=== PATIENT | male | born 1985 | race Two or more races ===

== ENCOUNTER 2021-06-17 10:31 | Inpatient (IN) | payer MEDICAID, OTHER ==
[~2021-06-17] VITALS: Ht 170.2 cm; Wt 64.7 kg
[2021-06-17] MEDS ORDERED: SODIUM CHLORIDE 0.9% 1,000 ML IV ONE (11:00)
[2021-06-17] MEDS ORDERED: SODIUM CHLORIDE 0.9% 1,000 ML IVB ONE (11:00)
[2021-06-17 12:25] LABS: Basophils # (auto) 0 10 ^3/uL (0-0.2); Basophils % (auto) 0.3 % (0.0-2.0); Eosinophils # (auto) 0 10 ^3/uL (0-0.8); Hematocrit 39.9 % (41.0-53.0); Hemoglobin 13.7 g/dL (13.5-17.5); Lymphocytes # (auto) 0.6 10 ^3/uL (0.4-5.4); Lymphocytes % (auto) 3.5 % (10.0-50.0); Mean Corpuscular Hgb Conc. 34.4 g/dL (32.0-36.0); Mean Corpuscular Volume 81.5 fL (80.0-100.0); Monocytes # (auto) 0.9 10 ^3/uL (0-1.3); Monocytes % (auto) 5.3 % (0.0-12.0); Neutrophils # (auto) 15.1 10 ^3/uL (1.6-8.6); Neutrophils % (auto) 90.9 % (37.0-80.0); Red Blood Cells 4.89 10^6/uL (4.5-5.90); Red Cell Distribution Width 15.1 % (11.8-14.3); White Blood Cell 16.6 10^3/uL (4.4-10.8)
[2021-06-17 12:27] LABS: Chloride 104 mmol/L (98-107); Potassium 4.6 mmol/L (3.5-5.1); Sodium 138 mmol/L (136-145)
[2021-06-17] MEDS ORDERED: LORazepam 2MG/ML-1ML VIAL IV ONE ×2 (12:30→15:30)
[2021-06-17] MEDS ORDERED: LABETALOL HCL 5 MG/ML 4ML SYRINGE IV ONE (12:30)
[2021-06-17 12:33] LABS: Albumin 4.1 g/dL (3.4-5.0); Anion Gap 10 (5-15); Aspartate Aminotransferase 55 U/L (15-37); BUN/Creatinine Ratio 21.6; Blood Alcohol < 3.0 mg/dL (0-5); Blood Urea Nitrogen 22 mg/dL (7-18); Calcium 9.4 mg/dL (8.5-10.1); Carbon Dioxide 24 mmol/L (21-32); GFR African American 108 mL/min; GFR Non-African American 89 mL/min; Glucose 103 mg/dL (74-106)
[2021-06-17 12:45] LABS: Alanine Aminotransferase 66 U/L (16-61); Alkaline Phosphatase 126 U/L (45-117); Bilirubin, Total 0.6 mg/dL (0.2-1.0); Total Protein 8.1 g/dL (6.4-8.2)
[2021-06-17 14:40] LABS: Alcohol, Urine < 3.0 mg/dL (0-10); Amphetamine Screen, Urine POSITIVE (NEGATIVE); Barbiturate Scree,Urine NEGATIVE (NEGATIVE); Cannabinoid Screen, Urine NEGATIVE (NEGATIVE); Cocaine Screen, Urine NEGATIVE (NEGATIVE); Opiate Scree,Urine NEGATIVE (NEGATIVE); Phencyclidine Screen, Urine NEGATIVE (NEGATIVE)
[2021-06-17 14:43] LABS: Urine Bacteria NONE SEEN /hpf (None Seen); Urine Blood 1+ /uL (Negative); Urine Specific Gravity 1.014 (1.001-1.035); Urine WBC 1 /hpf (0 - 3)
[2021-06-17 14:50] LABS: Benzodiazephine Screen, Urine NEGATIVE (NEGATIVE)
[2021-06-17] MEDS ORDERED: MORPHINE SULFATE INJECTION 2 MG/ML SYRG IV PRN ×2 (15:15→16:45)
[2021-06-17] MEDS ORDERED: NITROGLYCERIN 0.4 MG SL TAB SL PRN (15:15)
[2021-06-17] MEDS ORDERED: METOPROLOL SUCCINATE XL 50 MG TAB PO ONE (15:30)
[2021-06-17] MEDS ORDERED: METOPROLOL TARTRATE 1MG/1ML-5ML VIAL IV PRN (15:30)
[2021-06-17] MEDS ORDERED: LACTATED RINGER'S 1,000 ML IV ONE (15:30)
[2021-06-17] MEDS ORDERED: LABETALOL HCL 5 MG/ML 4ML SYRINGE IV PRN (16:30)
[2021-06-17] MEDS ORDERED: hydrALAZINE HCL 20 MG/ML VL IV PRN (16:45)
[2021-06-17] MEDS ORDERED: THIAMINE 100mg/ml INJ (200mg/2ml VIAL) IV ONE (16:45)
[2021-06-17] MEDS ORDERED: ISOSORBIDE MONONITRATE ER 60 MG TAB PO ONE (16:45)
[2021-06-17] MEDS ORDERED: CLINDAMYCIN 600MG IV 50 ML IV ONE (16:45)
[2021-06-17] MEDS ORDERED: MULTIPLE VITAMINS W/ MINERALS TAB PO ONE (16:45)
[2021-06-17] MEDS ORDERED: PANTOPRAZOLE 40 MG/10 ML VIAL INJ IV ONE (16:45)
[2021-06-17] MEDS ORDERED: ONDANSETRON HCL 4 MG/2 ML VIAL IV PRN (16:45)
[2021-06-17] MEDS ORDERED: BENAZEPRIL HCL 10 MG TAB PO ONE (16:45)
[2021-06-17] MEDS ORDERED: cefTRIAXone 1GM/50ML D5W 50 ML IV ONE (16:45)
[2021-06-17] MEDS ORDERED: HYDROcodone-ACET 5/325MG TAB PO ONE (16:45)
[2021-06-17] MEDS ORDERED: FOLIC ACID 1 MG TAB PO ONE (16:45)
[2021-06-17] MEDS ORDERED: HYDROcodone-ACET 5/325MG TAB PO PRN (16:45)
[2021-06-17] MEDS ORDERED: IPRATROPIUM BROM 0.5 MG/2.5ML INH SOL NEB ONE (16:45)
[2021-06-17] MEDS ORDERED: LACTULOSE 20Gm/30ML SOLN PO PRN (16:45)
[2021-06-17] MEDS ORDERED: LORazepam 0.5 MG TAB PO PRN (16:45)
[2021-06-17] MEDS: SODIUM CHLORIDE 0.9% 1,000 ML IV SCH ×2 (17:28→18:34)
[2021-06-17 17:45] VITALS: BP 114/63
[2021-06-17] MEDS ORDERED: IPRATROPIUM BROM 0.5 MG/2.5ML INH SOL NEB SCH (18:00)
[2021-06-17] MEDS: CLINDAMYCIN 600MG IV 50 ML IV SCH (18:33)
[2021-06-17 20:33] LABS: Magnesium 2.1 mg/dL (1.6-2.6); Phosphorus 3.6 mg/dL (2.5-4.90)
[2021-06-17 20:45] LABS: INR 1.06 (0.9-1.15); Partial Thromboplastin Time 25.6 sec (23.6-33.0)
[2021-06-17] MEDS ORDERED: ATORVASTATIN 20 MG TAB PO SCH (22:00)
[2021-06-18] MEDS ORDERED: dilTIAZem 25 MG/5 ML VIAL IV ONE (00:45)
[2021-06-18] MEDS: CLINDAMYCIN 600MG IV 50 ML IV SCH ×2 (01:18→10:05)
[2021-06-18 04:57] VITALS: BP 149/103
[2021-06-18] MEDS ORDERED: LORazepam 2MG/ML-1ML VIAL IV PRN (05:30)
[2021-06-18] MEDS ORDERED: hydrOXYzine HCL 10 MG TAB PO PRN (05:45)
[2021-06-18] MEDS: chlordiazePOXIDE HCL 25 MG CAP PO SCH ×3 (05:58→20:24)
[2021-06-18] MEDS ORDERED: GABAPENTIN 300 MG CAP PO SCH (06:00)
[2021-06-18 06:52] LABS: Basophils # (auto) 0 10 ^3/uL (0-0.2); Basophils % (auto) 0.3 % (0.0-2.0); Eosinophils # (auto) 0 10 ^3/uL (0-0.8); Eosinophils % (auto) 0.2 % (0.0-7.0); Hematocrit 36.7 % (41.0-53.0); Hemoglobin 12.6 g/dL (13.5-17.5); Lymphocytes # (auto) 1.2 10 ^3/uL (0.4-5.4); Lymphocytes % (auto) 11.1 % (10.0-50.0); Mean Corpuscular Hemoglobin 28.2 pg (28.0-32.0); Mean Corpuscular Hgb Conc. 34.4 g/dL (32.0-36.0); Mean Corpuscular Volume 82.1 fL (80.0-100.0); Monocytes # (auto) 1.2 10 ^3/uL (0-1.3); Monocytes % (auto) 10.5 % (0.0-12.0); Neutrophils # (auto) 8.6 10 ^3/uL (1.6-8.6); Neutrophils % (auto) 77.9 % (37.0-80.0); Red Blood Cells 4.47 10^6/uL (4.5-5.90); Red Cell Distribution Width 15.2 % (11.8-14.3); White Blood Cell 11.1 10^3/uL (4.4-10.8)
[2021-06-18 07:02] LABS: INR 1.05 (0.9-1.15); Partial Thromboplastin Time 26.4 sec (23.6-33.0)
[2021-06-18 07:27] LABS: Thyroid Stimulating Hormone 1.67 uIU/mL (0.358-3.74)
[2021-06-18 07:32] LABS: Albumin 3.4 g/dL (3.4-5.0); Calcium 8.9 mg/dL (8.5-10.1); Potassium 3.8 mmol/L (3.5-5.1); Uric Acid 7.1 mg/dL (3.5-7.2)
[2021-06-18 07:47] LABS: BUN/Creatinine Ratio 20.3; Bilirubin, Total 0.6 mg/dL (0.2-1.0); CRP High Sensitivity 5.77 mg/dL (< 0.3); Total Protein 7.4 g/dL (6.4-8.2)
[2021-06-18 09:00] VITALS: BP 143/95
[2021-06-18] MEDS ORDERED: cefTRIAXone 1GM/50ML D5W 50 ML IV SCH (09:00)
[2021-06-18] MEDS: MULTIPLE VITAMINS W/ MINERALS TAB PO SCH (09:19)
[2021-06-18] MEDS: METOPROLOL SUCCINATE XL 50 MG TAB PO SCH (09:19)
[2021-06-18] MEDS: FOLIC ACID 1 MG TAB PO SCH (09:22)
[2021-06-18] MEDS ORDERED: THIAMINE HCL 100 MG TAB PO SCH (10:00)
[2021-06-18] MEDS ORDERED: PANTOPRAZOLE 40 MG/10 ML VIAL INJ IV SCH (10:00)
[2021-06-18] MEDS ORDERED: BENAZEPRIL HCL 10 MG TAB PO SCH (10:00)
[2021-06-18] MEDS ORDERED: ISOSORBIDE MONONITRATE 20 MG TAB PO SCH (10:00)
[2021-06-18] MEDS ORDERED: ASPirin 81 mg TAB PO SCH (10:00)
[2021-06-18] MEDS ORDERED: DULoxetine HCL 30 MG CAP PO SCH (10:00)
[2021-06-18] MEDS ORDERED: ENOXAPARIN SOD 40 MG/0.4 ML SYRINGE SC SCH (10:00)
[2021-06-18] MEDS ORDERED: CHOLECALCIFEROL (VITD3) 2,000 UNIT CAP/TAB PO SCH (10:00)
[2021-06-18] MEDS ORDERED: THIAMINE 100mg/ml INJ (200mg/2ml VIAL) IV ONE (10:45)
[2021-06-18] MEDS ORDERED: LABETALOL HCL 5 MG/ML 4ML SYRINGE IV PRN (10:45)
[2021-06-18 13:00] VITALS: BP 109/68
[2021-06-18 16:57] VITALS: BP 136/86
[2021-06-18] MEDS: SODIUM CHLORIDE 0.9% 1,000 ML IV SCH (17:50)
[2021-06-18] MEDS: HYDROcodone-ACET 5/325MG TAB PO PRN (19:58)
[2021-06-18 22:00] VITALS: BP 125/82
[2021-06-19 05:00] VITALS: BP 112/78
[2021-06-19 05:41] LABS: Basophils # (auto) 0 10 ^3/uL (0-0.2); Basophils % (auto) 0.6 % (0.0-2.0); Eosinophils # (auto) 0.1 10 ^3/uL (0-0.8); Eosinophils % (auto) 1.3 % (0.0-7.0); Hemoglobin 11.9 g/dL (13.5-17.5); Lymphocytes # (auto) 1.3 10 ^3/uL (0.4-5.4); Lymphocytes % (auto) 20.2 % (10.0-50.0); Mean Corpuscular Hemoglobin 28.6 pg (28.0-32.0); Mean Corpuscular Hgb Conc. 34.9 g/dL (32.0-36.0); Mean Corpuscular Volume 81.8 fL (80.0-100.0); Monocytes # (auto) 1.1 10 ^3/uL (0-1.3); Monocytes % (auto) 15.7 % (0.0-12.0); Neutrophils # (auto) 4.1 10 ^3/uL (1.6-8.6); Neutrophils % (auto) 62.2 % (37.0-80.0); Red Blood Cells 4.15 10^6/uL (4.5-5.90); Red Cell Distribution Width 14.9 % (11.8-14.3); White Blood Cell 6.7 10^3/uL (4.4-10.8)
[2021-06-19 06:02] LABS: Albumin 2.8 g/dL (3.4-5.0); Calcium 8.3 mg/dL (8.5-10.1); Potassium 3.7 mmol/L (3.5-5.1)
[2021-06-19 06:19] LABS: BUN/Creatinine Ratio 16.4; Bilirubin, Total 0.3 mg/dL (0.2-1.0); Total Protein 6.1 g/dL (6.4-8.2)
[2021-06-19 09:29] VITALS: BP 140/65
[2021-06-19] MEDS: THIAMINE 100mg/ml INJ (200mg/2ml VIAL) IV SCH (09:34)
[2021-06-19] MEDS: MULTIPLE VITAMINS W/ MINERALS TAB PO SCH (09:35)
[2021-06-19] MEDS: FOLIC ACID 1 MG TAB PO SCH (09:35)
[2021-06-19] MEDS: METOPROLOL SUCCINATE XL 50 MG TAB PO SCH (09:35)
[2021-06-19] MEDS ORDERED: chlordiazePOXIDE HCL 25 MG CAP PO SCH (10:00)
[2021-06-19 13:00] VITALS: BP 115/79
[2021-06-19] MEDS: HYDROcodone-ACET 5/325MG TAB PO PRN ×2 (16:30→21:46)
[2021-06-19 17:00] VITALS: BP 121/74
[2021-06-19 22:00] VITALS: BP 120/77
[2021-06-20 05:00] VITALS: BP 128/78
[2021-06-20 09:00] VITALS: BP 129/73
[2021-06-20] MEDS: HYDROcodone-ACET 5/325MG TAB PO PRN (09:10)
[2021-06-20] MEDS: MULTIPLE VITAMINS W/ MINERALS TAB PO SCH (09:37)
[2021-06-20] MEDS: FOLIC ACID 1 MG TAB PO SCH (09:38)
[2021-06-20] MEDS: THIAMINE 100mg/ml INJ (200mg/2ml VIAL) IV SCH (09:38)
[2021-06-20] MEDS: METOPROLOL SUCCINATE XL 50 MG TAB PO SCH (09:38)
[2021-06-20] MEDS ORDERED: chlordiazePOXIDE HCL 25 MG CAP PO SCH (10:00)
[2021-06-20] MEDS ORDERED: METO-6 PO (10:01)
[2021-06-21] MEDS ORDERED: chlordiazePOXIDE HCL 25 MG CAP PO SCH (07:00)
[2021-06-23 20:09] LABS: Hepatitis A Ab IgM Negative; Hepatitis B Core IgM Negative; Hepatitis C Antibody Negative (Negative)
== END 2021-06-20 12:10 | disposition home or self-care (01) | DRG 52 ==
LOC: ER 10:31 → EDBD 10:31 → OVERFLOW 15:01 → CENTRAL 18:32 → TELE-CENTR 06-18 00:54 → CENTRAL 06-19 11:52
PROVIDERS: ADMIT Hospitalist; ATTEND Internal Medicine
DX: G92.8 Other toxic encephalopathy (principal); F10.231 Alcohol dependence with withdrawal delirium; M62.82 Rhabdomyolysis; S36.119A Unspecified injury of liver, initial encounter; I47.1 Supraventricular tachycardia; R65.10 Systemic inflammatory response syndrome (SIRS) of non-infectious origin without acute organ dysfunction; F15.90 Other stimulant use, unspecified, uncomplicated; Y90.0 Blood alcohol level of less than 20 mg/100 ml; F12.90 Cannabis use, unspecified, uncomplicated; F39 Unspecified mood [affective] disorder; G62.9 Polyneuropathy, unspecified; G89.4 Chronic pain syndrome; I16.9 Hypertensive crisis, unspecified; R53.81 Other malaise; X58.XXXA Exposure to other specified factors, initial encounter; F17.200 Nicotine dependence, unspecified, uncomplicated; Z20.822 Contact with and (suspected) exposure to COVID-19; I10 Essential (primary) hypertension; Z79.899 Other long term (current) drug therapy; Y93.89 Activity, other specified; Y92.89 Other specified places as the place of occurrence of the external cause; Y99.8 Other external cause status
CPT/HCPCS: 36415; 70450; 71045; 80053; 80061; 80074; 80307; 80320; 81001; 82550; 82728; 82962; 83036; 83605; 83615; 83690; 83735; 83880; 84100; 84443; 84484; 84550; 85025; 85379; 85610; 85652; 85730; 86141; 87040; 87086; 93005; 93306; 96361; 96374; 99291; C9113; G0378; J0696; J3490

== ENCOUNTER 2021-08-11 23:09 | Emergency (ER) | payer MEDICAID ==
[~2021-08-11] VITALS: Ht 177.8 cm; Wt 72.6 kg
[~2021-08-11 23:09] MED LIST: METO-6 PO
[2021-08-11 23:31] VITALS: BP 138/93
== END 2021-08-12 08:03 | disposition left against medical advice (07) ==
LOC: EDBD 23:09 → ER 23:09
DX: R41.82 Altered mental status, unspecified (principal); G92.9 Unspecified toxic encephalopathy; R94.31 Abnormal electrocardiogram [ECG] [EKG]
CPT/HCPCS: 93005

== ENCOUNTER 2021-11-25 19:06 | Inpatient (IN) | payer MEDICAID ==
[~2021-11-25] VITALS: Ht 170.2 cm; Wt 73.3 kg
[2021-11-25] MEDS ORDERED: SODIUM CHLORIDE 0.9% 1,000 ML IV ONE (20:00)
[2021-11-25 22:53] LABS: Basophils # (auto) 0 10 ^3/uL (0-0.2); Eosinophils # (auto) 0 10 ^3/uL (0-0.8); Monocytes # (auto) 1.3 10 ^3/uL (0-1.3)
[2021-11-25 22:55] LABS: Basophils % (auto) 0.2 % (0.0-2.0); Hemoglobin 13.3 g/dL (13.5-17.5); Lymphocytes # (auto) 1.6 10 ^3/uL (0.4-5.4); Lymphocytes % (auto) 11.5 % (10.0-50.0); Mean Corpuscular Hgb Conc. 32.5 g/dL (32.0-36.0); Mean Corpuscular Volume 80.2 fL (80.0-100.0); Monocytes % (auto) 8.9 % (0.0-12.0); Neutrophils # (auto) 11.1 10 ^3/uL (1.6-8.6); Neutrophils % (auto) 79.4 % (37.0-80.0); Red Blood Cells 5.12 10^6/uL (4.5-5.90); Red Cell Distribution Width 15.7 % (11.8-14.3)
[2021-11-25 23:13] LABS: Alanine Aminotransferase 70 U/L (16-61); Albumin 4.1 g/dL (3.4-5.0); Anion Gap 12 (5-15); Aspartate Aminotransferase 112 U/L (15-37); BUN/Creatinine Ratio 19.5; Blood Alcohol < 3.0 mg/dL (0-5); Blood Urea Nitrogen 22 mg/dL (7-18); Calcium 9.2 mg/dL (8.5-10.1); Carbon Dioxide 23 mmol/L (21-32); Chloride 105 mmol/L (98-107); GFR African American 96 mL/min; GFR Non-African American 79 mL/min; Glucose 108 mg/dL (74-106); Lipase 87 U/L (73-393); Magnesium 2.5 mg/dL (1.6-2.6); Potassium 4.3 mmol/L (3.5-5.1); Sodium 140 mmol/L (136-145)
[2021-11-25 23:27] LABS: Alkaline Phosphatase 111 U/L (45-117); Bilirubin, Total 0.7 mg/dL (0.2-1.0); Creatine Kinase IFCC 5432 U/L (39-308); Total Protein 8.5 g/dL (6.4-8.2)
[2021-11-26] MEDS ORDERED: SODIUM CHLORIDE 0.9% 1,000 ML IV SCH (03:00)
[2021-11-26] MEDS ORDERED: NITROGLYCERIN 0.4 MG SL TAB SL PRN (03:00)
[2021-11-26] MEDS ORDERED: SODIUM CHLORIDE 0.9% 500 ML IV ONE (03:00)
[2021-11-26] MEDS ORDERED: MORPHINE SULFATE INJ 2 MG/ml SYRG IV PRN (03:00)
[2021-11-26] MEDS ORDERED: LABETALOL HCL 5 MG/ML 4ML SYRINGE IV ONE (03:00)
[2021-11-26] MEDS ORDERED: ONDANSETRON HCL 4 MG/2 ML VIAL IV PRN (03:00)
[2021-11-26] MEDS: chlordiazePOXIDE HCL 25 MG CAP PO PRN ×2 (05:05→14:43)
[2021-11-26] MEDS ORDERED: LORazepam 2MG/ML-1ML VIAL IV ONE ×2 (05:30→21:30)
[2021-11-26] MEDS ORDERED: SODIUM CHLORIDE 0.9% 1,000 ML IV ONE (08:45)
[2021-11-26] MEDS ORDERED: SODIUM CHLORIDE 0.9% 1,000 ML IVB ONE (08:45)
[2021-11-26] MEDS: LISINOPRIL 10 MG TAB PO SCH (10:00)
[2021-11-26] MEDS: PANTOPRAZOLE 40 MG TAB PO SCH (10:00)
[2021-11-26] MEDS: HCTZ 25 MG TAB PO SCH (10:00)
[2021-11-26 10:15] LABS: Urine Bacteria FEW /hpf (None Seen); Urine Blood TRACE /uL (Negative); Urine Specific Gravity 1.024 (1.001-1.035); Urine WBC 2 /hpf (0 - 3)
[2021-11-26 10:30] LABS: Alcohol, Urine < 3.0 mg/dL (0-10); Amphetamine Screen, Urine POSITIVE (NEGATIVE); Barbiturate Scree,Urine NEGATIVE (NEGATIVE); Benzodiazephine Screen, Urine NEGATIVE (NEGATIVE); Cannabinoid Screen, Urine NEGATIVE (NEGATIVE); Cocaine Screen, Urine POSITIVE (NEGATIVE); Opiate Scree,Urine NEGATIVE (NEGATIVE); Phencyclidine Screen, Urine NEGATIVE (NEGATIVE)
[2021-11-26] MEDS: LORazepam 2MG/ML-1ML VIAL IV PRN ×2 (10:46→16:31)
[2021-11-26] MEDS: SODIUM CHLORIDE 0.9% 1,000 ML IV SCH ×2 (11:38→18:37)
[2021-11-26] MEDS: FOLIC ACID 1 MG, MULTIPLE VITAMIN 10 ML, MAGNESIUM SULF SDV 50% 8 MEQ, THIAMINE INJ 100... INJ SCH ×5 (12:19)
[2021-11-26] MEDS ORDERED: ACETAMINOPHEN 325 MG TAB PO ONE (15:15)
[2021-11-26] MEDS ORDERED: MIDAZOLAM HCL 2MG/2ML 2ml VIAL (1mg/ml) IV PRN (19:45)
[2021-11-26] MEDS ORDERED: LORazepam 2MG/ML-1ML VIAL ONE (21:10)
[2021-11-26] MEDS ORDERED: HALOPERIDOL LACTATE 5 MG/ML INJ VIAL ONE (21:10)
[2021-11-26] MEDS ORDERED: HALOPERIDOL LACTATE 5 MG/ML INJ VIAL IM PRN (21:30)
[2021-11-26 22:45] VITALS: BP 144/96
[2021-11-27] VITALS (11 sets, daily range): BP systolic 118–131; BP diastolic 70–85
[2021-11-27] MEDS: SODIUM CHLORIDE 0.9% 1,000 ML IV SCH ×4 (00:46→22:34)
[2021-11-27 06:40] LABS: Basophils # (auto) 0 10 ^3/uL (0-0.2); Basophils % (auto) 0.5 % (0.0-2.0); Eosinophils # (auto) 0.2 10 ^3/uL (0-0.8); Hematocrit 35.1 % (41.0-53.0); Hemoglobin 11.4 g/dL (13.5-17.5); Lymphocytes # (auto) 1.5 10 ^3/uL (0.4-5.4); Lymphocytes % (auto) 15.2 % (10.0-50.0); Mean Corpuscular Hemoglobin 26.3 pg (28.0-32.0); Mean Corpuscular Hgb Conc. 32.4 g/dL (32.0-36.0); Monocytes # (auto) 0.8 10 ^3/uL (0-1.3); Monocytes % (auto) 8.5 % (0.0-12.0); Neutrophils # (auto) 7.2 10 ^3/uL (1.6-8.6); Neutrophils % (auto) 73.8 % (37.0-80.0); Nucleated Red Blood Cells % 0.1 %; Red Blood Cells 4.34 10^6/uL (4.5-5.90); Red Cell Distribution Width 15.5 % (11.8-14.3); White Blood Cell 9.7 10^3/uL (4.4-10.8)
[2021-11-27 06:54] LABS: Potassium 3.9 mmol/L (3.5-5.1)
[2021-11-27 07:19] LABS: BUN/Creatinine Ratio 18.5; Bilirubin, Total 0.6 mg/dL (0.2-1.0); Calcium 8.1 mg/dL (8.5-10.1); Total Protein 5.9 g/dL (6.4-8.2)
[2021-11-27] MEDS: PANTOPRAZOLE 40 MG TAB PO SCH (09:56)
[2021-11-27] MEDS: HCTZ 25 MG TAB PO SCH (09:57)
[2021-11-27] MEDS: LISINOPRIL 10 MG TAB PO SCH (09:57)
[2021-11-27] MEDS: FOLIC ACID 1 MG, MULTIPLE VITAMIN 10 ML, MAGNESIUM SULF SDV 50% 8 MEQ, THIAMINE INJ 100... INJ SCH ×5 (12:00)
[2021-11-28 05:00] VITALS: BP 119/76
[2021-11-28] MEDS: SODIUM CHLORIDE 0.9% 1,000 ML IV SCH ×3 (05:33→16:35)
[2021-11-28] MEDS: chlordiazePOXIDE HCL 25 MG CAP PO PRN (05:34)
[2021-11-28] MEDS ORDERED: ALBUAER3 (05:47)
[2021-11-28] MEDS ORDERED: OMEP-260 PO (05:47)
[2021-11-28 08:00] VITALS: BP 136/80
[2021-11-28 09:00] VITALS: BP 138/84
[2021-11-28] MEDS: PANTOPRAZOLE 40 MG TAB PO SCH (10:41)
[2021-11-28] MEDS: LISINOPRIL 10 MG TAB PO SCH (10:42)
[2021-11-28] MEDS: HCTZ 25 MG TAB PO SCH (10:43)
[2021-11-28] MEDS: FOLIC ACID 1 MG, MULTIPLE VITAMIN 10 ML, MAGNESIUM SULF SDV 50% 8 MEQ, THIAMINE INJ 100... INJ SCH ×5 (12:58)
[2021-11-28 13:00] VITALS: BP 136/85
[2021-11-28 13:15] VITALS: BP 130/76
== END 2021-11-28 19:00 | disposition home or self-care (01) | DRG 816 ==
LOC: EDBD 19:06 → ER 19:09 → TELE 11-26 02:56 → TELE-WESTW 11-26 21:25
PROVIDERS: ADMIT Nurse Practitioner; ATTEND Internal Medicine
DX: T40.5X1A Poisoning by cocaine, accidental (unintentional), initial encounter (principal); G92.8 Other toxic encephalopathy; M62.82 Rhabdomyolysis; F14.90 Cocaine use, unspecified, uncomplicated; F10.129 Alcohol abuse with intoxication, unspecified; Z20.822 Contact with and (suspected) exposure to COVID-19; I10 Essential (primary) hypertension; R25.1 Tremor, unspecified; D72.829 Elevated white blood cell count, unspecified
CPT/HCPCS: 36415; 70450; 71045; 80053; 80307; 80320; 81001; 82550; 83605; 83690; 83735; 84484; 85025; 93005; 95819; 96360; G0378; J3490